=== PATIENT | female | born 1975 ===

== ENCOUNTER 2019-04-28 15:17 | Emergency (ER) | payer OTHER ==
[~2019-04-28] VITALS: Ht 457.2 cm; Wt 54.4 kg
[2019-04-28] MEDS ORDERED: ACETAMINOPHEN ES 500 MG TABLET ONE (15:43)
[2019-04-28] MEDS ORDERED: AMOXICILLIN-CLAVUL 875-125MG TABLET ONE (15:43)
[2019-04-28] MEDS ORDERED: ACETAMINOPHEN 325 MG TABLET PO ONE (15:45)
[2019-04-28] MEDS ORDERED: AMOXICILLIN-CLAVUL 875-125MG TABLET PO ONE (15:45)
--- NOTE | 2019-04-28 15:46 | NUR ---
Patient discharged to home in stable conditon. Written and verbal after care instructions given. Patient verbalizes understanding of instructions.PT WALKS IN STEADY GAIT.
--- NOTE | 2019-04-28 15:49 | NUR ---
Patient discharged to home in stable conditon. Written and verbal after care instructions given. Patient verbalizes understanding of instructions. AMBULATORY W/ STABLE GAIT ALL BELONGINGS W/ PT
== END 2019-04-28 15:48 | disposition home or self-care (01) ==
LOC: ER 15:17
DX: J02.8 Acute pharyngitis due to other specified organisms (principal)
CPT/HCPCS: A4663; A9150